=== PATIENT | male | born 1970 | race Caucasian/White ===

== ENCOUNTER 2019-06-11 14:13 | Inpatient (IN) | payer OTHER ==
[~2019-06-11] VITALS: Ht 175.3 cm; Wt 68.0 kg
--- NOTE | 2019-06-11 14:42 | NUR ---
TO CT VIA STRETCHER WITH PRODUCT DEMONSTRATOR
--- NOTE | 2019-06-11 15:30 | NUR ---
BC'S X2 DRAWN. DR REYNA INSTR TO HOLD OFF ON ABXS UNTIL FURTHER INSTR. D/T POSSIBLE IR PROCEDURE
[2019-06-11 15:38] VITALS: BP 124/81
[2019-06-11 15:48] LABS: BASOPHILS 0.2 % (0-2); EOSINOPHILS 0.4 % (0-7); HEMATOCRIT 39.1 % (42.0-54.0); HEMOGLOBIN 12.6 g/dL (13.5-17.5); IMMATURE GRANULOCYTES 0.2 % (0-5); LYMPHOCYTES 19.8 % (15-50); MCH 25.6 pg (26.0-34.0); MCHC 32.2 g/dL (31.0-37.0); MCV 79.3 fL (80.0-100.0); MEAN PLATELET VOLUME 8.4 fL (7.4-10.4); MONOCYTES 7.8 % (2-11); NEUTROPHILS 71.6 % (40-80); PLATELET COUNT 332 10x3/uL (130-400); RBC 4.93 10x6/uL (4.20-6.10); RDW 14.2 % (11.5-14.5); WBC 10.6 10x3/uL (4.8-10.8)
[2019-06-11 16:04] LABS: CALC OSMOLALITY 269 mosm/kg (275-300); CALCIUM 8.8 mg/dL (8.5-10.1); CARBON DIOXIDE 23.8 mmol/L (21.0-32.0); CHLORIDE - SERUM 100 mmol/L (98-107); CREATININE - SERUM 0.9 mg/dL (0.6-1.3); GLUCOSE 101 mg/dL (74-106); POTASSIUM - SERUM 3.3 mmol/L (3.5-5.1); SODIUM 134 mmol/L (136-145); UREA NITROGEN 19 mg/dL (7-18); eGFR NON AFRICAN AMERICAN > 90 mL/min (90-120)
[2019-06-11 16:10] LABS: ALBUMIN 3.2 g/dL (3.4-5.0); ALKALINE PHOSPHATASE 150 U/L (46-116); ALT (SGPT) 21 U/L (10-68); BILIRUBIN - TOTAL 0.28 mg/dL (0.2-1.3); PROTEIN - SERUM 7.7 g/dL (6.4-8.2)
--- NOTE | 2019-06-11 16:25 | NUR ---
CALLED REPORT TO PAMELA COWART. INFORMED HER BC'S X2 DRAWN BUT NO ABXS GIVEN D/T ORDERES FROM DR MANCERA TO START ABXS AFTER IR ASPIRATIONFROM L-SPINE. DR REYNA, KRISHNA MAZARIEGOS SPOKE WITH INTERVENTIONAL RADIOLOGIST BUT UNCERTAIN WHEN PROCEDURE WILL BE DONE
--- NOTE | 2019-06-11 17:06 | MORECARE ---
CASE MANAGEMENT DISCHARGE SUMMARY PATIENT: SYDNEY LOVING UNIT: [id number] ADM DATE: 06/11/19 AGE: 49 : 70 SEX: M ROOM/BED: D.2213 AUTHOR: NABEEL COLBY PHYSICIAN: REFERRING PHYSICIAN: LATASHA LOBO MD DATE OF SERVICE: 06/11/19 Discharge Plan Patient Name: SYDNEY LOVING [facility] [facility] 1970 Planned Disposition: Home Anticipated Discharge Date: 06/13/19 Discharge Date: Expected LOS: 2 Initial Reviewer: [email or web address] Initial Review Date: 06/11/2019 Generated: 06/11/19 6:05 pm DCPIA - Discharge Planning Initial Assessment Updated by [email or web address]: Kenyatta Byers on 06/11/19 5:04 pm * Is the patient Alert and Oriented? Yes * PCP No pcp * Pharmacy [facility] in [place] * Preadmission Environment Home Alone * Equipment None * List name and contact numbers for known caregivers / representatives who currently or will assist patient after discharge: Russ Loving - mother - [phone] * Verbal permission to speak to the caregivers and representatives has been obtained from the patient. Yes * Community resources currently utilized None Patient Name: SYDNEY LOVING Page [phone] at 1706 All edits/amendments must be made on the electronic document DICTATION DATE: 06/11/191704 SENIOR CLIMATE ADVISOR: ZOFIA 06/11/191704 RPT#: [id number] DC DATE: STATUS: ADM IN [facility] [address] [place] [address] END OF REPORT
--- NOTE | 2019-06-11 17:14 | MORECARE ---
CASE MANAGEMENT DISCHARGE SUMMARY PATIENT: SYDNEY LOVING UNIT: [id number] ADM DATE: 06/11/19 AGE: 49 : 70 SEX: M ROOM/BED: D.2213 AUTHOR: NABEEL COLBY PHYSICIAN: REFERRING PHYSICIAN: LATASHA LOBO MD DATE OF SERVICE: 06/11/19 Discharge Plan Patient Name: SYDNEY LOVING Facility: [facility]:[place] : 1970 Planned Disposition: Home Anticipated Discharge Date: 06/13/19 Discharge Date: Expected LOS: 2 Initial Reviewer: [email or web address] Initial Review Date: 06/11/2019 Generated: 06/11/19 6:14 pm DCP- Discharge Planning Updated by [email or web address]: Kenyatta Byers on 06/11/19 4:[address] DC PLAN: Return home. ANTICIPATED DC NEEDS: May require 6 weeks iv abt at dc. CM met with patient to complete initial dc planning assessment. CM educated patient on the CM role and verbal consent given by patient to complete assessment. Pt has been given morphine and kept falling asleep during assessment. CM verified patient's address, phone number, and emergency contact phone numbers. Patient lives at home alone. Patient denied use of assistive devices for ambulation aide. No further information was obtained from patient as he could not stay awake to answer questions. CM will continue to follow and will assist as needed with dc plans/needs. Kenyatta Byers RN, [facility] DCPIA - Discharge Planning Initial Assessment Updated by [email or web address]: Kenyatta Byers on 06/11/19 5:04 pm * Is the patient Alert and Oriented? Yes * PCP No pcp * Pharmacy [facility] in [place] * Preadmission Environment Home Alone * Equipment None * List name and contact numbers for known caregivers / representatives who currently or will assist patient after discharge: Russ Loving - mother - [phone] * Verbal permission to speak to the caregivers and representatives has been obtained from the patient. Yes * Community resources currently utilized None Last DP export: 06/11/19 4:06 pm Patient Name: SYDNEY LOVING Page [phone] at 1714 All edits/amendments must be made on the electronic document DICTATION DATE: 06/11/191713 NUCLEAR STATION OPERATOR: ZOFIA 06/11/191713 RPT#: [id number] DC DATE: STATUS: ADM IN [facility] [address] [place] [address] END OF REPORT
[2019-06-11 17:49] LABS: APTT 35.8 SECONDS (22.8-39.4); INR 1.19 (0.85-1.17); PROTIME 14.6 SECONDS (11.6-15.0)
[2019-06-11 18:30] VITALS: BP 117/72; BMI 22.2
--- NOTE | 2019-06-11 18:41 | NUR ---
PATIENT ADMITTED FOR BACK AND SCIATIC PAIN. MORPHINE SMOKE CHASER INITIATED. PAIN CONTROLED AT THIS TIME. PATIENT RESTING COMFORTABLY. CL IN REACH
--- NOTE | 2019-06-11 20:20 | NUR ---
LYING IN BED. ALERT AND ORIENTED X4. C/O PAIN IN BACK RATING 9 AND ASKED FOR PAIN MED. EXPLAINED TO PT THAT HE HAS A MORPHINE DREDGE MASTER PUMP AND EXPLAINED ON USE. HE VERBALIZED UNDERSTANDING OF USE. RESP NONLABORED. NS @ 125 MLHR INFUSING IN LT FOREARM. SR ELEVATED X2. CL IN REACH.
[2019-06-11 21:35] VITALS: BP 121/78
--- NOTE | 2019-06-12 01:00 | NUR ---
LYING IN BED WITH EYES CLOSED. RESP EVEN AND NONLABORED. NO DISTRESS. CL IN REACH.
[2019-06-12 04:00] VITALS: BP 117/63
[2019-06-12 06:43] LABS: ALBUMIN 2.8 g/dL (3.4-5.0); ALKALINE PHOSPHATASE 131 U/L (46-116); ALT (SGPT) 18 U/L (10-68); BILIRUBIN - TOTAL 0.31 mg/dL (0.2-1.3); CALC OSMOLALITY 275 mosm/kg (275-300); CALCIUM 8.5 mg/dL (8.5-10.1); CARBON DIOXIDE 26.6 mmol/L (21.0-32.0); CHLORIDE - SERUM 104 mmol/L (98-107); CREATININE - SERUM 0.7 mg/dL (0.6-1.3); GLUCOSE 121 mg/dL (74-106); PROTEIN - SERUM 6.8 g/dL (6.4-8.2); SODIUM 137 mmol/L (136-145); UREA NITROGEN 16 mg/dL (7-18); eGFR NON AFRICAN AMERICAN > 90 mL/min (90-120)
[2019-06-12 06:44] LABS: BASOPHILS 0 % (0-2); EOSINOPHILS 0 % (0-7); HEMOGLOBIN 12.5 g/dL (13.5-17.5); IMMATURE GRANULOCYTES 0.2 % (0-5); LYMPHOCYTES 19.2 % (15-50); MCH 25.5 pg (26.0-34.0); MCHC 32.1 g/dL (31.0-37.0); MCV 79.6 fL (80.0-100.0); MEAN PLATELET VOLUME 8.6 fL (7.4-10.4); MONOCYTES 7.5 % (2-11); NEUTROPHILS 73.1 % (40-80); PLATELET COUNT 349 10x3/uL (130-400); POTASSIUM - SERUM 4.6 mmol/L (3.5-5.1); RDW 14.4 % (11.5-14.5)
[2019-06-12 06:45] LABS: WBC 4.8 10x3/uL (4.8-10.8)
--- NOTE | 2019-06-12 08:09 | NUR ---
PATIENT RECIEVED RESTING IN BED, MORPHINE LABORER CHEMICAL PROCESSING FOR PAIN RELIEF. NPO FOR POSSIBLE PROCEDURE LATER TODAY
[2019-06-12 08:30] VITALS: BP 111/70
[2019-06-12 11:47] LABS: APPEARANCE CLEAR (CLEAR); BILIRUBIN NEGATIVE (NEGATIVE); COLOR YELLOW (YELLOW); GLUCOSE NEGATIVE (NEGATIVE); KETONE NEGATIVE (NEGATIVE); NITRITE NEGATIVE (NEGATIVE); PROTEIN NEGATIVE (NEGATIVE); SPECIFIC GRAVITY 1.015 (1.005-1.020); UROBILINOGEN NORMAL (NORMAL)
--- NOTE | 2019-06-12 12:59 | NUR ---
PATIENT TAKEN BY BED TO IR FOR CT GUIDED LUMBAR ASPIRATION
[2019-06-12 16:43] VITALS: BP 112/72
--- NOTE | 2019-06-12 20:50 | NUR ---
LYING IN BED. ALERT AND ORIENTED X4. DSRG TO LT LOWER BACK IS C/D/I. REPORTS PAIN IN BACK 8. TELEGRAPH INSPECTOR MORPHINE IN USE. NS @ 125 MLHR INFUSING IN LT FOREARM. AMBULATORY. SCDS IN USE BILAT. RESP EVEN AND NONLABORED. SR ELEVATED X2. CL IN REACH
[2019-06-12 22:05] VITALS: BP 111/67
--- NOTE | 2019-06-13 02:47 | NUR ---
HAS RESTED WELL TONIGHT. LYING IN BED WITH EYES CLOSED. RESP NONLABORED. NO DISTRESS. CL IN REACH.
[2019-06-13 04:00] VITALS: BP 106/72
[2019-06-13 05:59] LABS: BASOPHILS 0.2 % (0-2); EOSINOPHILS 0.3 % (0-7); HEMATOCRIT 39.5 % (42.0-54.0); HEMOGLOBIN 12.6 g/dL (13.5-17.5); IMMATURE GRANULOCYTES 0.2 % (0-5); LYMPHOCYTES 30.1 % (15-50); MCH 25.7 pg (26.0-34.0); MCHC 31.9 g/dL (31.0-37.0); MCV 80.6 fL (80.0-100.0); MEAN PLATELET VOLUME 8.7 fL (7.4-10.4); MONOCYTES 8.7 % (2-11); NEUTROPHILS 60.5 % (40-80); PLATELET COUNT 342 10x3/uL (130-400); RDW 14.5 % (11.5-14.5)
[2019-06-13 06:07] LABS: ALBUMIN 2.5 g/dL (3.4-5.0); ALKALINE PHOSPHATASE 116 U/L (46-116); ALT (SGPT) 20 U/L (10-68); BILIRUBIN - TOTAL 0.26 mg/dL (0.2-1.3); CALC OSMOLALITY 276 mosm/kg (275-300); CALCIUM 8.4 mg/dL (8.5-10.1); CARBON DIOXIDE 27.4 mmol/L (21.0-32.0); CHLORIDE - SERUM 102 mmol/L (98-107); CREATININE - SERUM 0.8 mg/dL (0.6-1.3); GLUCOSE 94 mg/dL (74-106); POTASSIUM - SERUM 4.2 mmol/L (3.5-5.1); PROTEIN - SERUM 6.6 g/dL (6.4-8.2); SODIUM 138 mmol/L (136-145); UREA NITROGEN 16 mg/dL (7-18); eGFR NON AFRICAN AMERICAN > 90 mL/min (90-120)
[2019-06-13 06:12] LABS: WBC 6.5 10x3/uL (4.8-10.8)
--- NOTE | 2019-06-13 08:36 | NUR ---
RESTING IN BED, HAND GLASS CUTTER IN PLACE, NO DISTRESS NOTED, IV INFUSING, CONT TO MONITOR PAIN
[2019-06-13 08:39] VITALS: BP 114/61
[2019-06-13 12:46] VITALS: BP 115/75
[2019-06-13 16:45] VITALS: BP 112/70
[2019-06-13 19:08] LABS: ACID FAST SMEAR Negative (()); AFB SPECIMEN PROCESSING Concentration (())
--- NOTE | 2019-06-13 19:40 | NUR ---
PT SITTING UP IN BED WITHOUT DISTRESS, AOX4. DENIES NEEDS. IV LEFT FA INFUSING NS @ 125. MORHINE NON LINEAR EDITOR IN PLACE, PT STATES PAIN IN CONTROLLED WITH PUMP. CL IN REACH, WILL CTM
[2019-06-13 20:00] VITALS: BP 103/73
[2019-06-14] VITALS: BP 112/69
[2019-06-14 04:00] VITALS: BP 115/68
[2019-06-14 07:25] LABS: ALBUMIN 2.9 g/dL (3.4-5.0); ALKALINE PHOSPHATASE 131 U/L (46-116); ALT (SGPT) 29 U/L (10-68); BILIRUBIN - TOTAL 0.34 mg/dL (0.2-1.3); CALC OSMOLALITY 274 mosm/kg (275-300); CALCIUM 8.9 mg/dL (8.5-10.1); CARBON DIOXIDE 28.2 mmol/L (21.0-32.0); CHLORIDE - SERUM 100 mmol/L (98-107); CREATININE - SERUM 0.7 mg/dL (0.6-1.3); GLUCOSE 100 mg/dL (74-106); POTASSIUM - SERUM 3.9 mmol/L (3.5-5.1); PROTEIN - SERUM 7.3 g/dL (6.4-8.2); SODIUM 137 mmol/L (136-145); UREA NITROGEN 14 mg/dL (7-18); eGFR NON AFRICAN AMERICAN > 90 mL/min (90-120)
--- NOTE | 2019-06-14 07:30 | NUR ---
PATIENT LAYING IN BED. STATES PAIN LEVEL IS A 7 OUT OF 10. CL IN REACH. NO FURTHER NEEDS AT THIS TIME. CL IN REACH. WCTM
[2019-06-14 08:28] LABS: BASOPHILS 0.2 % (0-2); EOSINOPHILS 0.9 % (0-7); HEMATOCRIT 44.5 % (42.0-54.0); HEMOGLOBIN 14.2 g/dL (13.5-17.5); IMMATURE GRANULOCYTES 0.2 % (0-5); LYMPHOCYTES 30.6 % (15-50); MCH 25.7 pg (26.0-34.0); MCHC 31.9 g/dL (31.0-37.0); MCV 80.5 fL (80.0-100.0); MEAN PLATELET VOLUME 8.7 fL (7.4-10.4); NEUTROPHILS 59.1 % (40-80); PLATELET COUNT 329 10x3/uL (130-400); RBC 5.53 10x6/uL (4.20-6.10); RDW 14.3 % (11.5-14.5); WBC 6.4 10x3/uL (4.8-10.8)
[2019-06-14 08:45] VITALS: BP 115/62
--- NOTE | 2019-06-14 11:54 | NUR ---
PATIENT TAKING A NAP. WCTM
[2019-06-14 12:46] VITALS: BP 116/75
--- NOTE | 2019-06-14 13:53 | NUR ---
NO NEEDS AT THIS TIME. CL IN REACH. WCTM
[2019-06-14 20:00] VITALS: BP 101/66
--- NOTE | 2019-06-14 20:00 | NUR ---
ALERT RESTING IN BED REPORTS GOOD PAIN CONTROL WITH RELAY ASSOCIATE, SEE SHIFT ASSESSMENT CALL LIGHT IN REACH
[2019-06-15 04:00] VITALS: BP 99/54
[2019-06-15 05:11] LABS: BASOPHILS 0.1 % (0-2); EOSINOPHILS 1.3 % (0-7); HEMATOCRIT 46.3 % (42.0-54.0); HEMOGLOBIN 15.1 g/dL (13.5-17.5); IMMATURE GRANULOCYTES 0.3 % (0-5); LYMPHOCYTES 28.4 % (15-50); MCH 25.9 pg (26.0-34.0); MCHC 32.6 g/dL (31.0-37.0); MCV 79.3 fL (80.0-100.0); MEAN PLATELET VOLUME 8.5 fL (7.4-10.4); MONOCYTES 9.9 % (2-11); PLATELET COUNT 307 10x3/uL (130-400); RBC 5.84 10x6/uL (4.20-6.10); RDW 14.2 % (11.5-14.5); WBC 6.9 10x3/uL (4.8-10.8)
[2019-06-15 05:30] LABS: ALKALINE PHOSPHATASE 139 U/L (46-116); ALT (SGPT) 32 U/L (10-68); BILIRUBIN - TOTAL 0.33 mg/dL (0.2-1.3); CALC OSMOLALITY 273 mosm/kg (275-300); CALCIUM 8.9 mg/dL (8.5-10.1); CARBON DIOXIDE 27.9 mmol/L (21.0-32.0); CHLORIDE - SERUM 101 mmol/L (98-107); CREATININE - SERUM 0.7 mg/dL (0.6-1.3); GLUCOSE 108 mg/dL (74-106); POTASSIUM - SERUM 4.2 mmol/L (3.5-5.1); PROTEIN - SERUM 7.7 g/dL (6.4-8.2); SODIUM 136 mmol/L (136-145); UREA NITROGEN 15 mg/dL (7-18); eGFR NON AFRICAN AMERICAN > 90 mL/min (90-120)
[2019-06-15 09:29] VITALS: BP 108/73
--- NOTE | 2019-06-15 11:26 | NUR ---
PATIENT SLEEPING. CL IN REACH. NO NEEDS AT THIS TIME. WCTM
[2019-06-15 12:23] VITALS: BP 105/70
[2019-06-15 14:00] VITALS: Ht 175.3 cm; Wt 68.0 kg
[2019-06-15 16:11] VITALS: BP 106/67
--- NOTE | 2019-06-15 19:00 | NUR ---
PATIENT ALERT AND ORIENTED. HOB ELEVATED TO A 30 DEGREE ANGLE. PATIENT HAS VISITORS IN ROOM. ASSESSMENT PERFORMED. PATIENT STATES PAIN IS CURRENTLY 7/10. STATES NORCO DOES NOT SEEM TO WORK WELL THE MORPHINE DID. SPOKE WITH PATIENT ABOUT PRN MORPHINE AND NORCO REGIMEN AND TRYING TO COMBAT PAIN BY ALTERNATING. PATIENT VERBALIZES UNDERSTANDING. ASSESSED BACK DRESSING. CLEAN AND DRY AT THIS TIME. PATIENT HAS LEFT UPPER ARM PICC LINE THAT FLUSHES WELL. CURRENTLY INFUSING NS @ A KVO RATE. PATIENT CURRENTLY HAS SCD'S OFF. EDUCATED ON IMPORTANCE OF WEARING SCD'S. PATIENT VERBALIZES UNDERSTANDING AND STATES HE WILL WEAR AT NIGHT TIME. CALL LIGHT IS CLOSE TO PATIENT. SIDE RAILS UP X 2. CURRENTLY WEARING BLUE SOCKS. BED LOCKED AND LOWERED. CPOC.
[2019-06-15 20:00] VITALS: BP 122/70
--- NOTE | 2019-06-15 21:00 | NUR ---
ADMINISTERED HS MEDICATIONS PER ORDER AND PROVIDED PRN MORPHINE PER REQUEST. PATIENT RATES PAIN 9/10. DENIES FURTHER NEEDS. CPOC.
--- NOTE | 2019-06-15 22:20 | NUR ---
ADMINISTERING ABX. PLACED SCD'S ON PATIENT WITH PERMISSION. ON AND FUNCTIONING. CPOC.
[2019-06-16] VITALS: BP 104/71
--- NOTE | 2019-06-16 00:07 | NUR ---
I have reviewed this patient and I concur with the Shift Assessment completed by the Licensed Practical Nurse today this shift.
[2019-06-16 05:05] LABS: BASOPHILS 0.3 % (0-2); EOSINOPHILS 1.8 % (0-7); HEMATOCRIT 45.4 % (42.0-54.0); HEMOGLOBIN 14.8 g/dL (13.5-17.5); IMMATURE GRANULOCYTES 0.3 % (0-5); LYMPHOCYTES 24.5 % (15-50); MCH 25.9 pg (26.0-34.0); MCHC 32.6 g/dL (31.0-37.0); MCV 79.4 fL (80.0-100.0); MEAN PLATELET VOLUME 8.5 fL (7.4-10.4); MONOCYTES 7.5 % (2-11); NEUTROPHILS 65.6 % (40-80); PLATELET COUNT 316 10x3/uL (130-400); RBC 5.72 10x6/uL (4.20-6.10); RDW 14.2 % (11.5-14.5); WBC 7.7 10x3/uL (4.8-10.8)
[2019-06-16 05:18] LABS: ALBUMIN 3.1 g/dL (3.4-5.0); ALKALINE PHOSPHATASE 146 U/L (46-116); ALT (SGPT) 32 U/L (10-68); BILIRUBIN - TOTAL 0.44 mg/dL (0.2-1.3); CALC OSMOLALITY 272 mosm/kg (275-300); CALCIUM 9.1 mg/dL (8.5-10.1); CARBON DIOXIDE 26.2 mmol/L (21.0-32.0); CHLORIDE - SERUM 100 mmol/L (98-107); CREATININE - SERUM 0.8 mg/dL (0.6-1.3); GLUCOSE 115 mg/dL (74-106); POTASSIUM - SERUM 4.2 mmol/L (3.5-5.1); PROTEIN - SERUM 7.7 g/dL (6.4-8.2); SODIUM 136 mmol/L (136-145); UREA NITROGEN 13 mg/dL (7-18); eGFR NON AFRICAN AMERICAN > 90 mL/min (90-120)
--- NOTE | 2019-06-16 05:30 | NUR ---
IV LINES CHANGED PER PROTOCAL. LABELS AND SWAB CAPS USED PER PROTOCAL.
[2019-06-16 07:50] VITALS: BP 113/75
[2019-06-16 13:24] VITALS: BP 109/80
[2019-06-16 16:43] VITALS: BP 96/69
[2019-06-16 19:30] VITALS: BP 110/69
[2019-06-17 00:30] VITALS: BP 118/67
--- NOTE | 2019-06-17 01:47 | NUR ---
Resting in bed with no needs at this time. Resprations are even and unlabored call light and water in reach. On room air. IV to left upper arm picc in place and paten with ns per orders. Alert and orented able to voice needs and wants to staff.
[2019-06-17 05:11] VITALS: BP 108/64
[2019-06-17 06:03] LABS: BASOPHILS 0.2 % (0-2); EOSINOPHILS 1.6 % (0-7); HEMATOCRIT 43.8 % (42.0-54.0); HEMOGLOBIN 14.3 g/dL (13.5-17.5); IMMATURE GRANULOCYTES 0.2 % (0-5); MCHC 32.6 g/dL (31.0-37.0); MCV 79.8 fL (80.0-100.0); MEAN PLATELET VOLUME 8.6 fL (7.4-10.4); MONOCYTES 9.3 % (2-11); NEUTROPHILS 62.7 % (40-80); PLATELET COUNT 331 10x3/uL (130-400); RBC 5.49 10x6/uL (4.20-6.10); RDW 14.1 % (11.5-14.5); WBC 6.4 10x3/uL (4.8-10.8)
[2019-06-17 06:32] LABS: ALKALINE PHOSPHATASE 142 U/L (46-116); ALT (SGPT) 31 U/L (10-68); BILIRUBIN - TOTAL 0.54 mg/dL (0.2-1.3); CALC OSMOLALITY 269 mosm/kg (275-300); CALCIUM 8.9 mg/dL (8.5-10.1); CARBON DIOXIDE 26.8 mmol/L (21.0-32.0); CHLORIDE - SERUM 101 mmol/L (98-107); CREATININE - SERUM 0.7 mg/dL (0.6-1.3); GLUCOSE 106 mg/dL (74-106); POTASSIUM - SERUM 4.1 mmol/L (3.5-5.1); PROTEIN - SERUM 7.5 g/dL (6.4-8.2); SODIUM 135 mmol/L (136-145); UREA NITROGEN 13 mg/dL (7-18); eGFR NON AFRICAN AMERICAN > 90 mL/min (90-120)
[2019-06-17 07:53] VITALS: BP 102/85
--- NOTE | 2019-06-17 09:23 | NUR ---
PT ALERT X 4. BREATH SOUNDS CLEAR BILAT. PICC LINE TO LEFT UPPER ARM, PATENT, DRESSING CDI. PT REPORTING PAIN OF 6/10, WILL MONITOR. BED LOW, CALL LIGHT IN REACH. NO OTHER NEEDS AT THIS TIME.
[2019-06-17] MEDS ORDERED: CYCLOBENZAPRINE10 MG PO (09:36)
[2019-06-17 12:16] VITALS: BP 118/79
[2019-06-17 17:04] VITALS: BP 104/61
[2019-06-17 19:30] VITALS: BP 107/67
[2019-06-18 00:42] VITALS: BP 110/70
--- NOTE | 2019-06-18 01:18 | NUR ---
Resting in bed with no s/s of distress. IV intact with no s/s of invection. Resprations even and unlabored, call light and water in reach. checked often for needs and safety.
[2019-06-18 05:10] LABS: BASOPHILS 0.3 % (0-2); EOSINOPHILS 1.5 % (0-7); HEMATOCRIT 42.6 % (42.0-54.0); HEMOGLOBIN 13.5 g/dL (13.5-17.5); IMMATURE GRANULOCYTES 0.1 % (0-5); LYMPHOCYTES 19.8 % (15-50); MCH 25.5 pg (26.0-34.0); MCHC 31.7 g/dL (31.0-37.0); MCV 80.4 fL (80.0-100.0); MEAN PLATELET VOLUME 8.8 fL (7.4-10.4); MONOCYTES 9.7 % (2-11); NEUTROPHILS 68.6 % (40-80); PLATELET COUNT 325 10x3/uL (130-400); RDW 14.1 % (11.5-14.5); WBC 7.8 10x3/uL (4.8-10.8)
[2019-06-18 05:40] VITALS: BP 102/61
[2019-06-18 05:45] LABS: ALBUMIN 2.9 g/dL (3.4-5.0); ALKALINE PHOSPHATASE 144 U/L (46-116); ALT (SGPT) 30 U/L (10-68); CALC OSMOLALITY 279 mosm/kg (275-300); CALCIUM 8.9 mg/dL (8.5-10.1); CARBON DIOXIDE 28.9 mmol/L (21.0-32.0); CHLORIDE - SERUM 104 mmol/L (98-107); CREATININE - SERUM 0.8 mg/dL (0.6-1.3); GLUCOSE 102 mg/dL (74-106); POTASSIUM - SERUM 4.2 mmol/L (3.5-5.1); PROTEIN - SERUM 7.1 g/dL (6.4-8.2); SODIUM 139 mmol/L (136-145); eGFR NON AFRICAN AMERICAN > 90 mL/min (90-120)
[2019-06-18 05:57] LABS: UREA NITROGEN 17 mg/dL (7-18)
[2019-06-18 09:03] VITALS: BP 104/63
--- NOTE | 2019-06-18 10:46 | NUR ---
PATIENT RECIEVED RESTING IN BED REPORST BACK AND LEFT LEG PAIN SLIGHTLY RELIEVED WITH NORCO, MORPHINE GIVEN WITH PAIN RELIEVED. CL IN REACH.
[2019-06-18 12:45] VITALS: BP 100/68
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
[2019-06-18 14:11] LABS: ERYTHROCYTE SEDIMENTATION RATE 13 mm/hr (0-15)
[2019-06-18 17:21] VITALS: BP 112/68
[2019-06-18 19:30] VITALS: BP 123/76
--- NOTE | 2019-06-18 19:30 | NUR ---
A&O X 4. SITTING UP AT SIDE OF BED, PAIN 8/10. REQUESTS OTHER FORM OF PAIN MEDICATION. ORDERS ENTERED PER VERBAL ORDER BY DR MANCERA. NO FURTHER NEEDS AT THIS TIME, WILL CONTINUE TO MONITOR.
[2019-06-19 00:30] VITALS: BP 120/74
[2019-06-19 04:22] LABS: BASOPHILS 0.3 % (0-2); EOSINOPHILS 2.2 % (0-7); HEMATOCRIT 41.3 % (42.0-54.0); HEMOGLOBIN 13.2 g/dL (13.5-17.5); IMMATURE GRANULOCYTES 0.1 % (0-5); LYMPHOCYTES 25.3 % (15-50); MCH 25.7 pg (26.0-34.0); MCV 80.5 fL (80.0-100.0); MEAN PLATELET VOLUME 8.7 fL (7.4-10.4); MONOCYTES 10.8 % (2-11); NEUTROPHILS 61.3 % (40-80); PLATELET COUNT 327 10x3/uL (130-400); RBC 5.13 10x6/uL (4.20-6.10); RDW 13.9 % (11.5-14.5); WBC 6.9 10x3/uL (4.8-10.8)
[2019-06-19 04:46] LABS: ALBUMIN 2.9 g/dL (3.4-5.0); ALKALINE PHOSPHATASE 147 U/L (46-116); ALT (SGPT) 24 U/L (10-68); BILIRUBIN - TOTAL 0.27 mg/dL (0.2-1.3); CALC OSMOLALITY 277 mosm/kg (275-300); CALCIUM 8.9 mg/dL (8.5-10.1); CARBON DIOXIDE 31.5 mmol/L (21.0-32.0); CHLORIDE - SERUM 104 mmol/L (98-107); CREATININE - SERUM 0.8 mg/dL (0.6-1.3); GLUCOSE 100 mg/dL (74-106); POTASSIUM - SERUM 4.1 mmol/L (3.5-5.1); SODIUM 139 mmol/L (136-145); UREA NITROGEN 13 mg/dL (7-18); eGFR NON AFRICAN AMERICAN > 90 mL/min (90-120)
[2019-06-19 05:30] VITALS: BP 110/66
--- NOTE | 2019-06-19 05:53 | NUR ---
I have reviewed this patient and I concur with the Shift Assessment completed by the Licensed Practical Nurse today this shift.
--- NOTE | 2019-06-19 07:34 | NUR ---
PATIENT RESTING WITH NO NEEDS VOICED, REPORTS ANXIETY DUE TO DIAGNOSIS. NO OTHER NEEDS VOICED AT THIS TIME. CL IN REACH
[2019-06-19 09:21] VITALS: BP 108/71
[2019-06-19 13:20] VITALS: BP 125/80
--- NOTE | 2019-06-19 14:36 | NUR ---
NUTRITION F/U PT REPORTS DECREASED PO INTAKE R/T ILL FITTING DENTURES. STATES HE IS ORDERING SOFT FOODS. DECLINES TO HAVE DIET CHANGED TO [facility] SOFT. PT AGREEABLE TO ENSURE WITH MEALS TO HELP MEET NUTRITIONAL NEEDS. RD FOLLOWING
[2019-06-19 17:18] VITALS: BP 114/64
--- NOTE | 2019-06-19 18:48 | NUR ---
PATIENT SITTING UP IN CHAIR WITH NO NEEDS VOICED, CL IN REACH
[2019-06-19 19:30] VITALS: BP 105/65
--- NOTE | 2019-06-19 19:30 | NUR ---
A&O, AMBULATING INDEPENDENTLY IN [place]. DENIES NEEDS. WILL CONTINUE TO MONITOR.
[2019-06-20 00:30] VITALS: BP 110/67
--- NOTE | 2019-06-20 05:09 | NUR ---
I have reviewed this patient and I concur with the Shift Assessment completed by the Licensed Practical Nurse today this shift.
[2019-06-20 05:29] LABS: ALBUMIN 2.9 g/dL (3.4-5.0); ALKALINE PHOSPHATASE 145 U/L (46-116); ALT (SGPT) 25 U/L (10-68); BILIRUBIN - TOTAL 0.25 mg/dL (0.2-1.3); CALC OSMOLALITY 279 mosm/kg (275-300); CALCIUM 8.4 mg/dL (8.5-10.1); CARBON DIOXIDE 30.6 mmol/L (21.0-32.0); CHLORIDE - SERUM 102 mmol/L (98-107); CREATININE - SERUM 0.7 mg/dL (0.6-1.3); GLUCOSE 116 mg/dL (74-106); POTASSIUM - SERUM 4.2 mmol/L (3.5-5.1); SODIUM 139 mmol/L (136-145); UREA NITROGEN 16 mg/dL (7-18); eGFR NON AFRICAN AMERICAN > 90 mL/min (90-120)
[2019-06-20 05:30] VITALS: BP 108/65
[2019-06-20 05:43] LABS: BASOPHILS 0.3 % (0-2); HEMATOCRIT 40.4 % (42.0-54.0); HEMOGLOBIN 12.7 g/dL (13.5-17.5); IMMATURE GRANULOCYTES 0.1 % (0-5); LYMPHOCYTES 22.3 % (15-50); MCH 25.5 pg (26.0-34.0); MCHC 31.4 g/dL (31.0-37.0); MEAN PLATELET VOLUME 8.7 fL (7.4-10.4); MONOCYTES 10.8 % (2-11); NEUTROPHILS 64.5 % (40-80); PLATELET COUNT 280 10x3/uL (130-400); RBC 4.99 10x6/uL (4.20-6.10); RDW 14.3 % (11.5-14.5); WBC 7.4 10x3/uL (4.8-10.8)
--- NOTE | 2019-06-20 07:33 | NUR ---
NPO ORDER IN PER IR DOCTOR. PATIENT NOTIFIED OF NPO ORDER. VERBALIZED UNDERSTANDING. PATIENT CONCERNED ABOUT REASON FOR NPO STATUS. WILL TALK WITH LOADER MACHINE.
[2019-06-20 09:38] VITALS: BP 107/64
--- NOTE | 2019-06-20 09:42 | NUR ---
ALERT AND ORIENTED. LUNGS CLEAR BILATERALLY. HEART SOUNDS S1 AND S2 HEARD IN ALL MANCUSO. BOWEL SOUNDS ACTIVE X 4. SKIN INTACT WITHOUT REDNESS. FRANCHESKA PICC PATENT WITHOUT REDNESS. DENIES NEEDS. BED LOW. CALL ROMAN AND PERSONAL ITEMS IN REACH. WILL CONTINUE TO MONITOR.
--- NOTE | 2019-06-20 11:15 | NUR ---
DRSG CHANGED TO FRANCHESKA PICC PER STERILE PROCEDURE.
[2019-06-20 13:19] VITALS: BP 108/67
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
[2019-06-20 17:15] VITALS: BP 111/71
--- NOTE | 2019-06-20 17:44 | NUR ---
RESTING IN BED. DENIES NEEDS. WILL CONTINUE TO MONITOR.
[2019-06-20 20:00] VITALS: BP 124/76
[2019-06-21] VITALS: BP 122/63
--- NOTE | 2019-06-21 03:22 | NUR ---
I have reviewed this patient and I concur with the Shift Assessment completed by the Licensed Practical Nurse today this shift.
[2019-06-21 04:00] VITALS: BP 101/68
[2019-06-21 04:46] LABS: ALBUMIN 3.1 g/dL (3.4-5.0); ALKALINE PHOSPHATASE 147 U/L (46-116); ALT (SGPT) 23 U/L (10-68); BILIRUBIN - TOTAL 0.23 mg/dL (0.2-1.3); CALC OSMOLALITY 279 mosm/kg (275-300); CALCIUM 8.9 mg/dL (8.5-10.1); CARBON DIOXIDE 32.3 mmol/L (21.0-32.0); CHLORIDE - SERUM 101 mmol/L (98-107); CREATININE - SERUM 0.7 mg/dL (0.6-1.3); GLUCOSE 109 mg/dL (74-106); POTASSIUM - SERUM 4.1 mmol/L (3.5-5.1); PROTEIN - SERUM 7.2 g/dL (6.4-8.2); SODIUM 139 mmol/L (136-145); UREA NITROGEN 16 mg/dL (7-18); eGFR NON AFRICAN AMERICAN > 90 mL/min (90-120)
[2019-06-21 04:51] LABS: BASOPHILS 0.3 % (0-2); EOSINOPHILS 1.8 % (0-7); HEMOGLOBIN 12.5 g/dL (13.5-17.5); IMMATURE GRANULOCYTES 0.1 % (0-5); LYMPHOCYTES 25.8 % (15-50); MCH 25.5 pg (26.0-34.0); MCHC 31.3 g/dL (31.0-37.0); MCV 81.5 fL (80.0-100.0); MEAN PLATELET VOLUME 8.8 fL (7.4-10.4); MONOCYTES 11.7 % (2-11); NEUTROPHILS 60.3 % (40-80); PLATELET COUNT 297 10x3/uL (130-400); RBC 4.91 10x6/uL (4.20-6.10); RDW 14.2 % (11.5-14.5); WBC 6.7 10x3/uL (4.8-10.8)
--- NOTE | 2019-06-21 07:44 | NUR ---
ALERT AND ORIENTED. LUNGS CLEAR BILATERALLY. HEART SOUNDS S1 AND S2 HEARD IN ALL MANCUSO. BOWEL SOUNDS ACTIVE X 4. SKIN INTACT WITHOUT REDNESS. FRANCHESKA PICC PATENT WITHOUT REDNESS. DENIES NEEDS. BED LOW. CALL ROMAN AND PERSONAL ITESM IN REACH. MOM AT BEDSIDE. WILL CONTINUE TO MONITOR.
[2019-06-21 08:39] VITALS: BP 128/69
[2019-06-21] MEDS ORDERED: DURAGESIC1 PATCH .2 TRANSDERM (11:29)
[2019-06-21] MEDS ORDERED: HYDROCODON-ACE1 EAC2 PO (11:30)
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
[2019-06-21] MEDS ORDERED: MERREM 1 GM/NS 11 G1 IV (11:36)
[2019-06-21] MEDS ORDERED: VANCOMYCIN 1.5 GM/NS IV (11:36)
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
[2019-06-21 12:46] VITALS: BP 103/69
--- NOTE | 2019-06-21 15:15 | NUR ---
FENTANYL PATCH REPLACED FOR DISCHARGE PER DISCHARGE ORDER.
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
--- NOTE | 2019-06-21 15:28 | NUR ---
DISCHARGE EDUCATION PROVIDED BOTH WRITTEN AND VERBAL. VERBALIZED UNDERSTANDING. DENIES FURTHER QUESTIONS. IV VANC CONTINUES TO RUN. WAITING FOR [facility] TO COME AND PROVIDE EDUCATION.
--- NOTE | 2019-06-21 16:55 | NUR ---
PATIENT DC HOME WITH ALL BELONGINGS.
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
== END 2019-06-21 17:44 | disposition home health service (06) | DRG 477 ==
LOC: D.ER 14:13 → D.MS 15:27
PROVIDERS: Family Medicine; Internal Medicine Nephrology; Radiology Vascular & Interventional Radiology; ADMIT Family Medicine; ATTEND Family Medicine
PROC: 07DS3ZX Extraction of Vertebral Bone Marrow, Percutaneous Approach, Diagnostic (ICD-10-PCS; 2019-06-12)
PROC: 0QB03ZX Excision of Lumbar Vertebra, Percutaneous Approach, Diagnostic (ICD-10-PCS; principal; 2019-06-12 13:05)
PROC: 05HY33Z Insertion of Infusion Device into Upper Vein, Percutaneous Approach (ICD-10-PCS; 2019-06-15)
DX: M51.16 Intervertebral disc disorders with radiculopathy, lumbar region (principal); G95.19 Other vascular myelopathies; M46.26 Osteomyelitis of vertebra, lumbar region; F17.203 Nicotine dependence unspecified, with withdrawal; E87.1 Hypo-osmolality and hyponatremia; M46.20 Osteomyelitis of vertebra, site unspecified; D64.9 Anemia, unspecified; E87.6 Hypokalemia